=== PATIENT | female | born 1940 | race Caucasian/White ===

== ENCOUNTER 2017-12-08 07:36 | Day surgery (SDC) | payer MEDICARE, OTHER ==
[~2017-12-08] VITALS: Ht 167.6 cm; Wt 73.6 kg
[~2017-12-08 07:36] MED LIST: CITA20TA19 PO; FENO145T38 PO; FERR-86 PO; METF500T PO; OMEG-166 PO
[2017-12-08] MEDS ORDERED: MIDAZolam 5mg/5ml vial ONE (07:47)
[2017-12-08] MEDS ORDERED: fentaNYL/PF 50MCG/1 ML 2ML syringe ONE (07:47)
[2017-12-08 07:55] VITALS: BP 172/89
[2017-12-08] MEDS ORDERED: LOVA20TA2 PO (08:18)
[2017-12-08] MEDS ORDERED: OMEP40CA37 PO (08:19)
[2017-12-08] MEDS ORDERED: FERR325T28 PO (08:19)
[2017-12-08] MEDS ORDERED: CINA30TA PO (08:20)
[2017-12-08] MEDS ORDERED: DONE10TA6 PO (08:20)
[2017-12-08] MEDS ORDERED: DULO-31 PO (08:21)
[2017-12-08 08:51] VITALS: BP 188/85
[2017-12-08 09:01] VITALS: BP 198/92
[2017-12-08 09:11] VITALS: BP 173/97
[2017-12-08 09:21] VITALS: BP 157/95
== END 2017-12-08 09:28 | disposition home or self-care (01) ==
LOC: GI LAB 07:36
PROVIDERS: ATTEND Internal Medicine Gastroenterology
DX: K63.5 Polyp of colon (principal); K57.30 Diverticulosis of large intestine without perforation or abscess without bleeding; Z98.0 Intestinal bypass and anastomosis status; Z85.038 Personal history of other malignant neoplasm of large intestine
CPT/HCPCS: 45385; G0500; J2250; J3010; J7030; 88305; A4620